=== PATIENT | female | born 1990 | race Caucasian/White ===

== ENCOUNTER 2018-01-11 18:21 | Outpatient (CLI) | payer OTHER ==
[2018-01-11 21:07] LABS: ADD UMIC YES; UR ASCORBIC ACID NEGATIVE (NEGATIVE); UR BACTERIA FEW /HPF (NONE SEEN); UR BILIRUBIN (Dip) NEGATIVE (NEGATIVE); UR BLOOD (Dip) 2+ mg/dL (NEGATIVE); UR CLARITY CLOUDY (CLEAR); UR COLOR YELLOW (YELLOW); UR GLUCOSE (Dip) NEGATIVE (NEGATIVE); UR KETONES (Dip) NEGATIVE (NEGATIVE); UR LEUKOCYTE ESTERASE (Dip) 1+ Leu/ul (NEGATIVE); UR MUCUS FEW /HPF (NONE SEEN); UR NITRITE (Dip) NEGATIVE (NEGATIVE); UR RBC 2 /HPF (0-5); UR SPECIFIC GRAVITY (Dip) 1.014 (1.003-1.030); UR SQUAMOUS EPITHELIAL CELL MANY /HPF (FEW); UR TOTAL PROTEIN (Dip) NEGATIVE (NEGATIVE); UR UROBILINOGEN (Dip) 1+ mg/dL (NEGATIVE); UR WBC 15 /HPF (0-5)
[2018-01-11] MEDS ORDERED: LACTATED RINGER'S 1,000 ML IV (22:10)
[2018-01-11] MEDS ORDERED: AMPICILLIN 2 GM/NS (PMX) 100 ML IV (22:30)
[2018-01-11] MEDS ORDERED: MISOPROSTOL 200 MCG TAB PR (22:30)
[2018-01-11] MEDS ORDERED: LIDOCAINE 1% (MPF) 30 ML INJ INJ (22:30)
[2018-01-11] MEDS ORDERED: METHYLERGONOVINE 0.2 MG INJ IM (22:30)
[2018-01-11] MEDS ORDERED: CARBOPROST 250 MCG INJ IM (22:30)
[2018-01-11] MEDS ORDERED: BUTORPHANOL 2 MG INJ IV (22:30)
[2018-01-11] MEDS ORDERED: OXYCODONE/ASPIRIN (4.88/325) TAB PO (22:30)
[2018-01-11] MEDS ORDERED: OXYTOCIN 30 UNITS/LR 500 ML IV (22:30)
[2018-01-11] MEDS ORDERED: IBUPROFEN 600 MG TAB PO (22:30)
[2018-01-12] MEDS ORDERED: AMPICILLIN 1 GM/NS (PMX) 50 ML IV (02:30)
== END 2018-01-11 21:50 | disposition home or self-care (01) ==
LOC: OBT 18:21 → L-D 18:23 → OBT 21:50
DX: O41.93X0 Disorder of amniotic fluid and membranes, unspecified, third trimester, not applicable or unspecified (principal); Z3A.39 39 weeks gestation of pregnancy
CPT/HCPCS: 76815; 76818; 81001

== ENCOUNTER 2018-01-13 22:18 | Inpatient (IN) | payer OTHER ==
[2018-01-14] MEDS ORDERED: LIDOCAINE 1% (MPF) 30 ML INJ INJ
[2018-01-14] MEDS ORDERED: IBUPROFEN 600 MG TAB PO
[2018-01-14] MEDS: LACTATED RINGER'S 1,000 ML IV ×4 (01:52→18:28)
[2018-01-14] MEDS: AMPICILLIN 2 GM/NS (PMX) 100 ML IV (01:53)
[2018-01-14 02:16] LABS: ADD MAN DIFF? NO
[2018-01-14 02:19] LABS: BASOPHILS % 0.4 % (0.0-2.0); EOSINOPHILS # 0.1 10^3/ul (0.0-0.5); EOSINOPHILS % 1.8 % (0.0-7.0); HEMATOCRIT 32.3 % (37.0-47.0); HEMOGLOBIN 11.3 g/dl (12.0-16.0); LYMPHOCYTES # 1.8 10^3/ul (0.8-2.9); LYMPHOCYTES % 24.3 % (15.0-51.0); MEAN CORPUSCULAR HEMOGLOBIN 29.6 pg (29.0-33.0); MEAN CORPUSCULAR VOLUME 84.6 fl (82.0-101.0); MEAN PLATELET VOLUME 12.8 fl (7.4-10.4); MONOCYTE # 0.5 10^3/ul (0.3-0.9); MONOCYTES % 6.4 % (0.0-11.0); NEUTROPHIL # 4.8 10^3/ul (1.6-7.5); NEUTROPHILS % 66.7 % (39.0-77.0); PLATELET COUNT 169 10^3/UL (140-415); RED BLOOD COUNT 3.82 10^6/ul (4.20-5.40); RED CELL DISTRIBUTION WIDTH 12.6 % (11.5-14.5)
[2018-01-14 02:19] LABS: WHITE BLOOD COUNT 7.2 10^3/ul (4.8-10.8)
[2018-01-14] MEDS: OXYTOCIN 30 UNITS/LR 500 ML IV ×3 (03:07→22:14)
[2018-01-14 03:38] LABS: HEPATITIS B SURFACE ANTIGEN NEGATIVE (NEGATIVE)
[2018-01-14 03:59] LABS: INR 0.95; PARTIAL THROMBOPLASTIN TIME 25.2 Sec (25.0-35.0); PROTIME 12.8 Sec (11.9-14.9)
[2018-01-14] MEDS: AMPICILLIN 1 GM/NS (PMX) 50 ML IV ×5 (05:54→20:00)
[2018-01-14] MEDS: BUTORPHANOL 2 MG INJ IV (14:26)
[2018-01-14 14:57] LABS: RAPID PLASMA REAGIN NONREACTIVE (NR)
[2018-01-14] MEDS ORDERED: FENTAnyl 2MCG/ML-ROPIV 0.2% 100 ML (17:58)
[2018-01-14] MEDS ORDERED: LACTATED RINGER'S 1,000 ML IV* (22:13)
[2018-01-14] MEDS ORDERED: MISOPROSTOL 200 MCG TAB PR ×2 (22:30)
[2018-01-14] MEDS ORDERED: DIBUCAINE 1% 30 GM OINT PR (22:30)
[2018-01-14] MEDS ORDERED: WITCH HAZEL/GLYCERIN PAD PR (22:30)
[2018-01-14] MEDS ORDERED: ZOLPIDEM 5 MG TAB PO (22:30)
[2018-01-14] MEDS ORDERED: DIPHENHYDRAMINE 50 MG INJ IV (22:30)
[2018-01-14] MEDS ORDERED: CARBOPROST 250 MCG INJ IM ×2 (22:30)
[2018-01-14] MEDS ORDERED: OXYTOCIN 30 UNITS/LR 500 ML IV ×2 (22:30)
[2018-01-14] MEDS ORDERED: ONDANSETRON 4 MG INJ IV (22:30)
[2018-01-14] MEDS ORDERED: ACETAMINOPHEN 325 MG TAB PO (22:30)
[2018-01-14] MEDS ORDERED: METHYLERGONOVINE 0.2 MG INJ IM ×2 (22:30)
[2018-01-15] MEDS: DEXTROSE 5%-LR 1,000 ML IV (03:15)
[2018-01-15 06:02] LABS: ADD MAN DIFF? NO
[2018-01-15 06:10] LABS: WHITE BLOOD COUNT 9.8 10^3/ul (4.8-10.8)
[2018-01-15 06:10] LABS: BASOPHILS % 0.1 % (0.0-2.0); EOSINOPHILS % 0.2 % (0.0-7.0); HEMATOCRIT 29.7 % (37.0-47.0); LYMPHOCYTES # 1.2 10^3/ul (0.8-2.9); LYMPHOCYTES % 12.3 % (15.0-51.0); MEAN CORPUSCULAR HEMOGLOBIN 28.6 pg (29.0-33.0); MEAN CORPUSCULAR HGB CONC 33.7 g/dl (32.0-37.0); MEAN CORPUSCULAR VOLUME 84.9 fl (82.0-101.0); MEAN PLATELET VOLUME 12.7 fl (7.4-10.4); MONOCYTE # 0.6 10^3/ul (0.3-0.9); MONOCYTES % 5.7 % (0.0-11.0); NEUTROPHILS % 81.4 % (39.0-77.0); PLATELET COUNT 162 10^3/UL (140-415); RED CELL DISTRIBUTION WIDTH 12.8 % (11.5-14.5)
[2018-01-15] MEDS: IBUPROFEN 600 MG TAB PO ×5 (08:11→23:35)
[2018-01-15] MEDS: SENNA/DOCUSATE NA (8.6MG/50MG) TAB PO (10:21)
[2018-01-15] MEDS: LANOLIN 7 GM TUBE TOP (21:31)
[2018-01-15] MEDS: OXYCODONE/ASPIRIN (4.88/325) TAB PO (21:31)
[2018-01-15] MEDS: BENZOCAINE 20% 56 ML SPRAY TOP (21:31)
[2018-01-16] MEDS: IBUPROFEN 600 MG TAB PO ×3 (05:31→17:44)
[2018-01-16] MEDS: MEASLES,MUMPS,RUBELLA VACCINE INJ SC* (09:00)
[2018-01-16] MEDS: DIPHTH/TET/ACEL PERTUSS (ADULT) 0.5 ML VIAL IM* (14:56)
== END 2018-01-16 17:45 | disposition home or self-care (01) | DRG 775 ==
LOC: OBT 22:18 → PP1 01-15 18:49 → L-D 22:19
PROVIDERS: Obstetrics & Gynecology
PROC: 10E0XZZ Delivery of Products of Conception, External Approach (ICD-10-PCS; principal; 2018-01-14)
PROC: 0UQGXZZ Repair Vagina, External Approach (ICD-10-PCS; 2018-01-14)
PROC: 0UQMXZZ Repair Vulva, External Approach (ICD-10-PCS; 2018-01-14)
DX: O70.0 First degree perineal laceration during delivery (principal); O71.4 Obstetric high vaginal laceration alone; O99.820 Streptococcus B carrier state complicating pregnancy; Z3A.39 39 weeks gestation of pregnancy; Z37.0 Single live birth
CPT/HCPCS: 36415; 62319; 85025; 85610; 85730; 86592; 86850; 86900; 86901; 87340; 90715